=== PATIENT | female | born 1955 | race Caucasian/White ===

== ENCOUNTER 2016-05-14 17:21 | Emergency (ER) | payer MEDICAID, OTHER ==
[~2016-05-14] VITALS: Wt 68.6 kg
[~2016-05-14 17:21] MED LIST: AMLO-145; ASPI-535; ATEN50TA; HYDR25TA6
[2016-05-14] MEDS ORDERED: morphine 4 MG/ML VIAL IV STA (23:46)
--- NOTE | 2016-05-15 00:06 | RADRPT ---
PROCEDURE: Portable chest x-ray. CLINICAL INDICATION: Headache. TECHNIQUE: Portable AP view of the chest. COMPARISON: None. FINDINGS: No pulmonary edema or conolidation is identified. The cardiac silhouette is magnified. No pleural effusion is seen. There is no pneumothorax. There are surgical clips in the right axilla. IMPRESSION: 1. No evidence of acute cardiopulmonary disease. RPTAT: HTAR .Thai Manzano MD, MD Date Time Electronically viewed and signed by .Thai Manzano MD, on 05/15/2016 00:06 .R/
[2016-05-15 00:07] LABS: BASOPHILS % 0.3 % (0.0-2.0); EOSINOPHILS % 0.5 % (0.0-7.0); HEMATOCRIT 43.1 % (37.0-47.0); HEMOGLOBIN 14.9 g/dl (12.0-16.0); LYMPHOCYTES # 3.3 10^3/ul (0.8-2.9); LYMPHOCYTES % 44.3 % (15.0-51.0); MEAN CORPUSCULAR HEMOGLOBIN 31.4 pg (29.0-33.0); MEAN CORPUSCULAR HGB CONC 34.5 g/dl (32.0-37.0); MEAN PLATELET VOLUME 9.6 fl (7.4-10.4); MONOCYTE # 0.4 10^3/ul (0.3-0.9); MONOCYTES % 5.4 % (0.0-11.0); NEUTROPHIL # 3.7 10^3/ul (1.6-7.5); NEUTROPHILS % 49.5 % (39.0-77.0); PLATELET COUNT 182 10^3/UL (140-440); RED BLOOD COUNT 4.74 10^6/ul (4.20-5.40); UNCORRECTED WBC 7.4 10^3/ul (4.8-10.8); WHITE BLOOD COUNT 7.4 10^3/ul (4.8-10.8)
[2016-05-15 00:16] LABS: INR 0.99; PROTIME 13.1 Sec (12.2-14.2)
[2016-05-15 00:17] LABS: PARTIAL THROMBOPLASTIN TIME 33.2 Sec (25.0-35.0)
[2016-05-15 00:22] LABS: CHLORIDE 101 mmol/L (97-110); POTASSIUM 4.1 mmol/L (3.5-5.1); SODIUM 144 mmol/L (135-144)
--- NOTE | 2016-05-15 00:23 | RADRPT ---
PROCEDURE: CT Brain without contrast. CLINICAL INDICATION: Patient experiencing a headache. TECHNIQUE: A multiplanar CT of the brain was performed on a CT scanner utilizing axial imaging fro m the skull base through the vertex without IV contrast. The CTDIvol is 45.01 mGy and the DLP is 72 0.23 mGycm. One or more of the following dose reduction techniques were utilized: Automated exposu re control, adjustment of the mA and/or kV according to patient size, use of iterative reconstructio n technique. COMPARISON: None FINDINGS: No evidence of intracranial hemorrhage or abnormal extra-axial fluid collection. The brain parenchyma is normal attenuation morphology with preservation of myers white differentiatio n and age appropriate size of the ventricles and subarachnoid spaces. Innumerable round calcifications fell subarachnoid space and parenchymal bilaterally with the larges t measuring 3 mm in greatest dimension most compatible with sequelae of remote infection or granulom as disease. The posterior fossa contents, brainstem, craniocervical junction, orbits, pituitary axis, paranasal sinuses, mastoid air cells, and calvarium are unremarkable. IMPRESSION: 1. No intracranial hemorrhage or acute intracranial. 2. Intracranial calcifications most likely representing sequelae of prior infection or granulomatou s disease. RPTAT:AAJJ Physician Gloria Date Time Electronically viewed and signed by Physician Gloria on 05/15/2016 00:23 SHAHBAZ/
[2016-05-15 00:25] LABS: ANION GAP 18 (8-16); CARBON DIOXIDE 29 mmol/L (21-31); CREATININE 0.68 mg/dl (0.44-1.00)
[2016-05-15 00:26] LABS: BLOOD UREA NITROGEN 16 mg/dl (7-20); CALCIUM 9.5 mg/dl (8.4-10.2); GLUCOSE 103 mg/dl (70-220)
[2016-05-15 00:39] LABS: CONDITION 1; TROPONIN-I < 0.012 ng/ml (0.00-0.12)
--- NOTE | 2016-05-15 01:28 | ERD ---
ER Documentation Chief Complaint Date/Time DATE: 05/15/16 TIME: 01:25 Chief Complaint RIGHT SIDE FACIAL PARALYSIS. SINCE YESTERDAY. 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 She is on some facial pain near her jawline as well prior to these paralysis. She is also tearing in her right eye. No fevers or chills. No focal neurological complaints with no change in visual acuity. No other current complaints. No limb weakness ROS All systems reviewed and are negative except as per history of present illness. Medications Home Meds Reported Medications Aspirin Ec (Aspir 81) 81 Mg Tablet.dr, DAILY 06/23/11 Amlodipine Besylate* (Amlodipine Besylate*) 5 Mg Tablet, DAILY 06/23/11 Atenolol* (Atenolol*) 50 Mg Tablet, DAILY 06/23/11 Hydrochlorothiazide (Hydrochlorothiazide) 25 Mg Tablet, DAILY 06/23/11 Allergies Allergies: Coded Allergies: No Known Allergy (Verified , 06/23/11) PMhx/Soc History of Surgery: Yes (REMOVAL OF THE BREAST TUMOR) Anesthesia Reaction: No Hx Neurological Disorder: No Hx Respiratory Disorders: No Hx Cardiac Disorders: Yes (HTN) Hx Psychiatric Problems: No Hx Alcohol Use: No Hx Substance Use: No Hx Tobacco Use: No Smoking Status: Never smoker Physical Exam Vitals Vital Signs Date Time Temp Pulse Resp B/P Pulse Ox O2 Delivery O2 Flow Rate FiO2 05/14/16 23:22 67 168/78 99 Room Air 05/14/16 17:54 98.7 76 20 181/75 98 Physical Exam Const: [] Head: Atraumatic Eyes: Normal Conjunctiva ENT: Normal External Ears, Nose and Mouth. Neck: Full range of motion..~ No meningismus. Resp: Clear to auscultation bilaterally Cardio: Regular rate and rhythm, no murmurs Abd: Soft, non tender, non distended. Normal bowel sounds Skin: No petechiae or rashes Back: No midline or flank tenderness Ext: No cyanosis, or edema Neur: Awake and alert. Forehead sparing lesion on the right side of her face showing mild right facial droop and mild eyelid droop Psych: Normal Mood and Affect Result Diagram: 05/14/16 2342 05/14/16 2342 Results 24 hrs Laboratory Tests Test 05/14/16 23:42 Activated Partial Thromboplast Time 33.2Sec Anion Gap 18 Basophils # 0.010^3/ul Basophils % 0.3% Blood Urea Nitrogen 16mg/dl Calcium Level 9.5mg/dl Carbon Dioxide Level 29mmol/L Chloride Level 101mmol/L Creatinine 0.68mg/dl Eosinophils # 0.010^3/ul Eosinophils % 0.5% Glucose Level 103mg/dl Hematocrit 43.1% Hemoglobin 14.9g/dl INR International Normalized Ratio 0.99 Lymphocytes # 3.310^3/ul Lymphocytes % 44.3% Mean Corpuscular Hemoglobin 31.4pg Mean Corpuscular Hemoglobin Concent 34.5g/dl Mean Corpuscular Volume 91.0fl Mean Platelet Volume 9.6fl Monocytes # 0.410^3/ul Monocytes % 5.4% Neutrophils # 3.710^3/ul Neutrophils % 49.5% Nucleated Red Blood Cells # 0.010^3/ul Nucleated Red Blood Cells % 0.0/100WBC Platelet Count 96567^3/UL Potassium Level 4.1mmol/L Prothrombin Time 13.1Sec Prothrombin Time Ratio 1.0 Red Blood Count 4.7410^6/ul Red Cell Distribution Width 14.0% Sodium Level 144mmol/L Troponin I < 0.012ng/ml White Blood Count 7.410^3/ul Current Medications Medications (Trade) Dose Ordered Sig/Zac Route PRN Reason Start Time Stop Time Status Last Admin Dose Admin Morphine Sulfate (morphine) 4 mg ONCE STAT IV 05/14/16 23:46 05/14/16 23:48 DC 05/14/16 23:51 Procedures/MDM EKG: Rate/Rhythm: [Normal Sinus Rhythm] QRS, ST, T-waves: [No changes consistent w/ acute ischemia] Impression: [No evidence of ischemia or arrhythmia] Chest X-ray 1V Interpreted by me: Soft Tissue: No acute abnormalities Bones: No acute abnormalities Mediastinum/Cardiac Silhouette/Lungs: [No acute abnormalities] Medical decision making: A very pleasant patient who comes in with Griffith's palsy appeared to be discharged home with prednisone, Tears Naturale, Toradol Departure Diagnosis: Primary Impression: Griffith's palsy Condition: Stable RADHA PARKER May 15, 2016 01:28
[2016-05-15] MEDS ORDERED: KETOROLAC 30 MG INJ IV STA (01:31)
[2016-05-15] MEDS ORDERED: TRAM50TA2 PO (01:43)
[2016-05-15] MEDS ORDERED: VALA10004 PO (01:43)
[2016-05-15] MEDS ORDERED: PRED20TA PO (01:43)
[2016-05-15] MEDS ORDERED: DEXT1DRO OP (01:43)
[2016-05-15] MEDS ORDERED: DIAZEPAM 5 MG/ML SYG IV ONE (02:00)
[2016-05-15 02:37] VITALS: BP 149/69; PULSE 56; RESP 16; TEMP 98.9
== END 2016-05-15 02:41 | disposition home or self-care (01) ==
LOC: E/R 17:21
DX: G51.0 Bell's palsy (principal); R40.2142 Coma scale, eyes open, spontaneous, at arrival to emergency department; I10 Essential (primary) hypertension; R40.2252 Coma scale, best verbal response, oriented, at arrival to emergency department; R40.2362 Coma scale, best motor response, obeys commands, at arrival to emergency department; Z79.82 Long term (current) use of aspirin
CPT/HCPCS: 36415; 70450; 71010; 80048; 84484; 85025; 85610; 85730; 93005; 96374; 96376; 99285; J1885; J2270; J3360

== ENCOUNTER 2018-07-03 04:15 | Emergency (ER) | payer OTHER ==
[~2018-07-03] VITALS: Ht 152.4 cm; Wt 66.9 kg
[~2018-07-03 04:15] MED LIST changes: -AMLO-145; -ATEN50TA; -HYDR25TA6; +LOSA1TAB25 PO
[2018-07-03 04:32] VITALS: Ht 152.4 cm; Wt 66.9 kg
[2018-07-03] MEDS ORDERED: morphine 4 MG/ML VIAL IV STA (06:33)
[2018-07-03] MEDS ORDERED: ONDANSETRON 4 MG INJ IV STA (06:33)
[2018-07-03] MEDS ORDERED: BELLADONNA/PHENOBARBITAL TAB PO STA (08:46)
[2018-07-03] MEDS ORDERED: FAMOTIDINE 20 MG INJ IV STA (08:46)
[2018-07-03] MEDS ORDERED: LIDOCAINE/MYLANTA 40 ML BTL PO STA (08:46)
--- NOTE | 2018-07-03 09:13 | ERD ---
ER Documentation Chief Complaint Chief Complaint right flank pain since yesterday HPI During the patient's encounter translation services were utilized Language: Ghanaian Source: Family 62-year-old female presents to the emergency with epigastric right upper quadrant abdominal pain slightly radiating to the back that started yesterday. The pain is approximately 8 out of 10, constant, not colicky. She denies any fevers or chills, no chest pain or shortness of breath no pleuritic pain. Patient denies any nausea vomiting diarrhea or constipation. No abdominal surgeries in the past. ROS All systems reviewed and are negative except as per history of present illness. Medications Home Meds Active Scripts Sucralfate* (Carafate*) 1 Gm Tab, 1 GM PO WITH MEALS for 14 Days, TAB Prov:KEVIN DELAROSA MD 07/03/18 Omeprazole* (Omeprazole*) 20 Mg Capsule.dr, 20 MG PO DAILY for 30 Days Prov:KEVIN DELAROSA MD 07/03/18 Reported Medications Losartan-Hydrochlorothiazide (Losartan-HCTZ) 100-25 Mg Tab, 1 TAB PO DAILY, TAB 03/19/18 Aspirin Ec (Aspir 81) 81 Mg Tablet., DAILY 06/23/11 Allergies Allergies: Coded Allergies: No Known Allergy (Verified , 07/03/18) PMhx/Soc History of Surgery: Yes (, HX OF SX FOR R BREAST CA) Anesthesia Reaction: No Hx Neurological Disorder: No Hx Respiratory Disorders: No Hx Cardiac Disorders: Yes (HYPERTENSION) Hx Psychiatric Problems: No Hx Miscellaneous Medical Probl: No Hx Alcohol Use: No Hx Substance Use: No Hx Tobacco Use: No Smoking Status: Never smoker FmHx Family History: No diabetes Physical Exam Vitals Vital Signs Date Temp Pulse Resp B/P (MAP) Pulse Ox O2 O2 Flow FiO2 Time Delivery Rate 07/03/18 65 18 166/89 100 Room Air 05:37 (114) 07/03/18 97.9 78 18 164/75 100 04:32 (104) Physical Exam General: Slightly uncomfortable but no acute distress Head: Normocephalic, atraumatic. Eyes: Pupils equally reactive, EOM intact ENT: Moist mucous membranes Neck: Supple, no lymphadenopathy Respiratory: Lungs clear bilaterally, no distress Cardiovascular: RRR, no murmurs, rubs, or gallops Abdominal: Soft, very mild right upper quadrant abdominal tenderness without rebound or guarding, negative Vicente sign, no tenderness to McBurney's point, no pulsatile mass : Deferred MSK: No edema, no unilateral swelling, 5/5 strength Neurologic: Alert and oriented, moving all extremities, normal speech, no focal weakness, no cerebellar signs Skin: No rash Psych: Normal mood Result Diagram: 07/03/18 0547 07/03/18 0547 Results 24 hrs Laboratory Tests Test 07/03/18 05:47 07/03/18 10:56 White Blood Count 8.8 10^3/ul Red Blood Count 4.53 10^6/ul Hemoglobin 13.7 g/dl Hematocrit 40.6 % Mean Corpuscular Volume 89.6 fl Mean Corpuscular Hemoglobin 30.2 pg Mean Corpuscular Hemoglobin Concent 33.7 g/dl Red Cell Distribution Width 13.2 % Platelet Count 257 10^3/UL Mean Platelet Volume 10.9 fl Immature Granulocytes % 0.500 % Neutrophils % 56.8 % Lymphocytes % 35.6 % Monocytes % 6.5 % Eosinophils % 0.3 % Basophils % 0.3 % Nucleated Red Blood Cells % 0.0 /100WBC Immature Granulocytes # 0.040 10^3/ul Neutrophils # 5.0 10^3/ul Lymphocytes # 3.1 10^3/ul Monocytes # 0.6 10^3/ul Eosinophils # 0.0 10^3/ul Basophils # 0.0 10^3/ul Nucleated Red Blood Cells # 0.0 10^3/ul Urine Color YELLOW Urine Clarity SLIGHTLY CLOUDY Urine pH 6.0 Urine Specific [place] 1.033 Urine Ketones NEGATIVE mg/dL Urine Nitrite NEGATIVE mg/dL Urine Bilirubin NEGATIVE mg/dL Urine Urobilinogen NEGATIVE mg/dL Urine Leukocyte Esterase TRACE Mandy/ul Urine Microscopic RBC 12 /HPF Urine Microscopic WBC 3 /HPF Urine Mucus MANY /HPF Urine Hemoglobin 1+ mg/dL Urine Glucose NEGATIVE mg/dL Urine Total Protein NEGATIVE mg/dl Sodium Level 144 mmol/L Potassium Level 4.2 mmol/L Chloride Level 106 mmol/L Carbon Dioxide Level 26 mmol/L Anion Gap 12 Blood Urea Nitrogen 20 mg/dl Creatinine 0.67 mg/dl Est Glomerular Filtrat Rate mL/min > 60 mL/min Glucose Level 120 mg/dl Calcium Level 9.3 mg/dl Total Bilirubin 0.2 mg/dl Direct Bilirubin 0.00 mg/dl Indirect Bilirubin 0.2 mg/dl Aspartate Amino Transf (AST/SGOT) 24 IU/L Alanine Aminotransferase (ALT/SGPT) 38 IU/L Alkaline Phosphatase 86 IU/L Troponin I < 0.012 ng/ml Total Protein 7.8 g/dl Albumin 4.4 g/dl Globulin 3.40 g/dl Albumin/Globulin Ratio 1.29 Lipase 180 U/L Lactic Acid Level 1.4 mmol/L Current Medications Medications Dose Sig/Zac Start Time Status Last (Trade) Ordered Route PRN Stop Time Admin Dose Reason Admin Morphine 4 mg ONCE STAT 07/03/18 DC 07/03/18 Sulfate IV 06:33 07:14 (morphine) 07/03/18 06:34 Ondansetron 4 mg ONCE STAT 07/03/18 DC 07/03/18 HCl (Zofran IV 06:33 07:14 Inj) 07/03/18 06:34 Famotidine 20 mg ONCE STAT 07/03/18 DC 07/03/18 (Pepcid Iv) IV 08:46 08:54 07/03/18 08:48 40 ml ONCE STAT 07/03/18 DC 07/03/18 Miscellaneous PO 08:46 08:54 Medication 07/03/18 08:48 (Gi Cocktail (2)) Belladonna/ 2 tab ONCE STAT 07/03/18 DC 07/03/18 Phenobarbital PO 08:46 08:54 () 07/03/18 08:48 1 mg ONCE STAT 07/03/18 DC 07/03/18 Hydromorphone IV 09:56 10:29 HCl 07/03/18 09:58 (Dilaudid) IV Flush 10 ml STK-MED 07/03/18 DC (NS 10 ml) ONCE .ROUTE 10:14 07/03/18 10:15 Sodium 100 ml @ ud STK-MED 07/03/18 DC Chloride ONCE .ROUTE 10:07/03/18 10:15 Iohexol 100 ml @ ud STK-MED 07/03/18 DC ONCE .ROUTE 10:07/03/18 10:15 Procedures/MDM EKG, MONITORS, & DIAGNOSTIC IMAGING: EKG: I reviewed and interpreted a 12-lead EKG. Rhythm: Normal sinus rhythm ST Changes: No contiguous ST segment elevations T waves: No contiguous T wave inversions Impression: [No evidence of acute cardiac ischemia] Gallbladder ultrasound: RPTAT: AA IMPRESSION: Fatty liver. No evidence of gallstones. CT abdomen and pelvis IMPRESSION: Mild fatty liver with scattered hepatic calcifications consistent with sequelae of prior granulomatous disease. Mildly fecal filled colon. No evidence of bowel obstruction or inflammation. There is no appendicitis. There is diverticulosis without diverticulitis. Atherosclerotic disease is present. No renal or ureteral calculi with no evidence of hydronephrosis. CTA IMPRESSION: 1. No abdominal aortic aneurysm or dissection. Patent mesenteric arteries without significant stenosis. 2. Mild thickening in the gastric peripyloric region, which could be seen with mild gastritis. Recommend clinical correlation. 3. Descending and sigmoid colonic diverticulosis without acute diverticulitis. No bowel obstruction. Normal appendix 4. Hepatic steatosis. Multiple hepatic calcifications, likely sequela of prior granulomatous disease. RPTAT: AAEE IMPRESSION: Mild fatty liver with scattered hepatic calcifications consistent with sequelae of prior granulomatous disease. Mildly fecal filled colon. No evidence of bowel obstruction or inflammation. There is no appendicitis. There is diverticulosis without diverticulitis. Atherosclerotic disease is present. No renal or ureteral calculi with no evidence of hydronephrosis. EKG: I reviewed and interpreted a 12-lead EKG. Rhythm: Normal sinus rhythm ST Changes: No contiguous ST segment elevations T waves: No contiguous T wave inversions Impression: [No evidence of acute cardiac ischemia] LAB INTERPRETATION: I reviewed the laboratory testing and it shows [no evidence of acute process] MEDICAL DECISION MAKING: The patient presents with right upper quadrant abdominal pain. Strong concern for possible biliary colic, lower concern for acute cholecystitis. The patient has no cardiac pulmonary complaints concerning for acute coronary syndrome. No migratory pain suggestive of dissection. Patient otherwise has a benign abdominal exam without concern for acute appendicitis. Consider gastric process such as peptic ulcer disease as well. ER COURSE: * The patient's initial laboratory testing was unremarkable. Gallbladder ultrasound was unremarkable but the patient still had discomfort. CT imaging to rule out possible stone given microscopic hematuria has been ordered but also negative. * EKG and troponin were added but very low pretest probability for cardiac etiology. EKG is nonischemic. The patient exhibits no exertional symptoms. Unlikely ACS * A GI cocktail was tried. * No skin changes suggestive of shingles. * The patient continued to have persistent pain of unclear etiology to however when she was observed resting comfortably in between examinations. Patient may have a low pain threshold. Patient had a thorough workup that included lactic acid to rule out mesenteric ischemia. This was normal. CTA to rule out vascular process which is normal other than showing possible gastritis. The gastric process is most likely etiology of the patient's symptoms. The patient does describe improved hematology at this time. Given that I have had a thorough workup including multiple CTs, ultrasound, EKG, troponin in the e mergency room setting I do not feel that inpatient hospitalization is going to provide additional benefit to this patient. This seems to be consistent with peptic ulcer versus gastritis. The patient's symptoms are improved. She can be safely discharged home with a PPI, barrier therapy and follow up with gastroenterology referral through primary care physician. Return precautions were discussed and understood. The patient feels comfortable with this plan. She will be discharged. Observation Note: Indication: Abdominal pain Duration: Greater than 4 hours Family history: As described above The patient was observed with serial exams over the above timeframe. The patient continued to be well-appearing, and observation continued without complication. CONSULTATION: [None] DISPOSITION PLAN: The patient does not have an identifiable emergent medical condition that warrants inpatient hospitalization at this time. The patient is deemed safe for discharge with outpatient follow-up. We discussed follow up with the patient's primary care doctor within 24 to 48 hours as needed. We also discussed return to the emergency room for worsening symptoms or worsening condition. Outpatient referral: Gastroenterology Discharge Medications: Sucralfate, Prilosec Departure Diagnosis: Primary Impression: Epigastric abdominal pain Additional Impression: Gastritis Gastritis type: unspecified gastritis Chronicity: acute Gastritis bleeding: without bleeding Qualified Codes: K29.00 - Acute gastritis without bleeding Condition: KEVIN Trotter MD Jul 03, 2018 09:13
[2018-07-03] MEDS ORDERED: HYDROmorphONE 1 MG/ML SYG IV STA (09:56)
[2018-07-03] MEDS ORDERED: IOHEXOL 100 ML ONE (10:14)
[2018-07-03] MEDS ORDERED: SOD CHLORIDE 0.9% 100 ML ONE (10:14)
[2018-07-03] MEDS ORDERED: OMEP20CA16 PO (11:48)
[2018-07-03] MEDS ORDERED: SUCR1TAB56 PO (11:48)
[2018-07-03 12:05] VITALS: BP 143/64; PULSE 61; RESP 16
== END 2018-07-03 12:16 | disposition home or self-care (01) ==
LOC: E/R 04:15
DX: K29.00 Acute gastritis without bleeding (principal); I10 Essential (primary) hypertension; Z85.3 Personal history of malignant neoplasm of breast; Z79.82 Long term (current) use of aspirin
CPT/HCPCS: 36415; 74176; 75635; 76705; 80053; 81001; 83605; 83690; 84484; 85025; 93005; 96374; 96375; 99285; J1170; J2270; J2405; Q9967

== ENCOUNTER 2018-09-17 05:41 | Day surgery (SDC) | payer OTHER ==
[~2018-09-17] VITALS: Ht 154.9 cm; Wt 68.5 kg
[~2018-09-17 05:41] MED LIST changes: +OMEP20CA16 PO; +SUCR1TAB56 PO
[2018-09-17 06:45] VITALS: Ht 154.9 cm; Wt 68.5 kg
[2018-09-17 07:12] VITALS: BP 147/82; PULSE 70; RESP 17
[2018-09-17] MEDS ORDERED: FENTAnyl 50 MCG/ML VIAL ONE (08:33)
[2018-09-17] MEDS ORDERED: MIDAZOLAM 1 MG/ML 2 ML INJ ONE (08:33)
[2018-09-17 08:51] VITALS: BP 170/86; PULSE 66; RESP 16
--- NOTE | 2018-09-23 09:37 | CONS ---
DATE OF ADMISSION: 09/17/2018 DATE OF CONSULTATION: PATIENT NAME: JAYNA SWANSON TYPE OF CONSULTATION: Preoperative gastroenterology. Dear Dr. Carey: I thank you very much for this kind referral. HISTORY OF PRESENT ILLNESS: Ms. Jayna Swanson is a 62-year-old female patient who has been refer red to me for further evaluation of upper abdominal pain. The patient had severe upper abdominal cipriano n and the patient went to the emergency room. She had abdominal ultrasound and CT scan done. She wa s noted to have thickening of the gastric wall in the prepyloric area. She also had fatty liver. Ga llbladder was normal. The patient was also noted to have diverticulosis of the colon. The patient h as been taking omeprazole. No past history of peptic ulcer disease. She has been taking baby aspiri n a day. No history of gallstones or hepatitis in the past. She is hypertensive. Not a diabetic. No heart disease, lung problem or kidney disease. The patient had breast cancer for which she has un dergone surgery, chemotherapy and radiation. SOCIAL HISTORY: Nonsmoker. No alcohol abuse. FAMILY HISTORY: No family history of gastrointestinal tract neoplasm. ALLERGIES: NO DRUG ALLERGIES. MEDICATIONS: 1. Losartan. 2. Hydrochlorothiazide. 3. Aspirin 81 mg. PHYSICAL EXAMINATION: VITAL SIGNS: She is 5 feet 1 inch tall and weighs 148 pounds. HEART: Normal heart sounds. LUNGS: Clear. ABDOMEN: Soft, no masses. Normal bowel sounds. NEUROLOGIC: Normal neurological exam. IMPRESSION: 1. Upper abdominal pain. 2. The patient went to the emergency room. She had abdominal ultrasound and CT scan done. 3. She was noted to have fatty liver. 4. She also had thickening of the prepyloric area of the stomach. 5. No gallstones were identified. 6. The patient had colonoscopy a few months ago and she had diverticulosis of the colon. 7. Hypertension. 8. Status post surgery, chemotherapy and radiation for breast cancer. PLAN: 1. Endoscopy for further evaluation. 2. The patient was strongly advised to lose weight, have a low-fat diet and have a good control of s lucia lipids because of fatty liver. 3. Advised fiber diet because of diverticulosis. The procedure and possible complications are well explained to the patient. She understands and cons ents to the procedure. I thank you once again. With warmest personal regards, Dictated By: LV PATE/SAMUEL Conf#: [id number] DID#: [id number]
== END 2018-09-17 10:01 | disposition home or self-care (01) ==
LOC: GIL 05:41
PROVIDERS: ATTEND Internal Medicine Gastroenterology
DX: K29.60 Other gastritis without bleeding (principal)
CPT/HCPCS: 43239; 84703; 88305; 88312; J2250; J3010